=== PATIENT | male | born 1980 ===

== ENCOUNTER 2019-01-21 18:03 | Emergency (ER) | payer OTHER ==
[2019-01-21 18:11] VITALS: BP 139/93
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
[2019-01-21] MEDS ORDERED: IBUPROFEN 800 MG TAB PO ONE (21:10)
== END 2019-01-21 21:53 | disposition home or self-care (01) ==
LOC: ED 18:03
DX: M25.532 Pain in left wrist (principal); M79.18 Myalgia, other site
CPT/HCPCS: 99283